=== PATIENT | female | born 1970 | race Caucasian/White ===

== ENCOUNTER 2024-11-13 08:53 | Outpatient (CLI) | payer BC | END 2024-11-13 08:54 | disposition home or self-care (01) | LOC: SCSMRI 08:53 | PROVIDERS: ATTEND Orthopaedic Surgery | DX: M23.92 Unspecified internal derangement of left knee (principal); S83.412A Sprain of medial collateral ligament of left knee, initial encounter; R93.7 Abnormal findings on diagnostic imaging of other parts of musculoskeletal system; S82.125A Nondisplaced fracture of lateral condyle of left tibia, initial encounter for closed fracture ==